=== PATIENT | male | born 1935 | race Caucasian/White ===

== ENCOUNTER 2017-11-18 05:51 | Observation (INO) | payer OTHER ==
[2017-11-16 14:55] VITALS: BP 90/60
[2017-11-16 14:58] LABS: BASOPHILS % (AUTO) 0.7 % (0.0-5.0); EOSINOPHILS % (AUTO) 1.3 % (0.0-8.0); HEMATOCRIT 38.6 % (42-54); LYMPHOCYTES % (AUTO) 27.2 % (21.0-51.0); MEAN CORPUSCULAR HEMOGLOBIN 33.4 pg (27.0-33.0); MEAN CORPUSCULAR HGB CONC 34.2 g/dL (32.0-36.0); MEAN CORPUSCULAR VOLUME 97.5 fL (79-99); MONOCYTES % (AUTO) 5.4 % (3.0-13.0); NEUTROPHILS % (AUTO) 65.4 % (40.0-77.0); PLATELET COUNT (AUTO) 169 K/uL (130-400); RED BLOOD CELL COUNT(AUTO) 3.96 MIL/uL (4.50-6.20); RED CELL DISTRIBUTION WIDTH 12.4 % (11.0-15.5)
[2017-11-16 15:14] LABS: CREATININE 1.5 mg/dL (0.5-1.5); POTASSIUM 4.7 mmol/L (3.5-5.1)
[2017-11-16 15:18] LABS: INR 1.01 (0.85-1.15); PARTIAL THROMBOPLASTIN TIME 28.5 SEC (26.3-35.5); PROTHROMBIN TIME 10.6 SEC (9.6-11.6)
[2017-11-18] VITALS (9 sets, daily range): BP systolic 109–138; BP diastolic 62–78
[~2017-11-18] VITALS: Ht 185.4 cm; Wt 96.2 kg
[~2017-11-18 05:51] MED LIST: FISH1CAP20 PO; GLIM2TAB3 PO; LOSA25TA21 PO; METO25TA6 PO; RIVA20TA PO
[2017-11-18] MEDS ORDERED: SODIUM CHLORIDE 0.9% 1000ML 1,000 ML IV SCH (06:00)
[2017-11-18] MEDS ORDERED: CEFAZOLIN SODIUM 1 GM VIAL IVP SCH (06:00)
[2017-11-18] MEDS ORDERED: LIDOCAINE HCL 1% MDV 50ML VIAL ONE (09:22)
[2017-11-18] MEDS ORDERED: BUPIVACAINE/PF 0.25% 30ML VIAL IJ ONE (09:22)
[2017-11-18] MEDS ORDERED: CEFAZOLIN SODIUM 1 GM VIAL ONE (09:22)
[2017-11-18] MEDS ORDERED: MEPERIDINE-PF 25 MG/ML SYG ONE ×7 (09:23→13:05)
[2017-11-18] MEDS ORDERED: MIDAZOLAM HCL 1 MG/ML 2ML VIAL ONE ×7 (09:23→13:05)
[2017-11-18] MEDS ORDERED: THROMBIN-JMI 5000 UNIT/VIAL TP ONE (09:59)
[2017-11-18] MEDS ORDERED: ISOVUE-300 100 ML VIAL IV ONE (11:24)
[2017-11-18] MEDS ORDERED: VANCOMYCIN 1GM+NS 250ML 250 ML IV ONE (13:21)
[2017-11-18] MEDS ORDERED: OCTYL 2-CYANOACRYLATE 1 EACH TP ONE (13:32)
[2017-11-18] MEDS ORDERED: ACETAMINOPHEN 325 MG TAB PO PRN ×2 (13:45)
[2017-11-18] MEDS ORDERED: ONDANSETRON HCL 4 MG/2 ML VIAL IV PRN (13:45)
[2017-11-18] MEDS ORDERED: DEXTROSE 50%-WATER 50 ML DISP.SYRIN IV PRN (13:45)
[2017-11-18] MEDS ORDERED: DOXY100T2 PO (13:48)
[2017-11-18] MEDS: INSULIN HUMULIN R 100 UNIT/ML 3ML SQ SCH (20:41)
[2017-11-18] MEDS ORDERED: FISH OIL 1000 MG/CAP PO SCH (21:00)
[2017-11-18] MEDS ORDERED: METOPROLOL TARTRATE 25 MG TAB PO SCH (21:00)
[2017-11-19] MEDS ORDERED: CEFAZOLIN SODIUM 1 GM VIAL IVP ONE
[2017-11-19 04:08] VITALS: BP 135/74
[2017-11-19] MEDS: INSULIN HUMULIN R 100 UNIT/ML 3ML SQ SCH ×2 (05:41→11:30)
[2017-11-19 07:00] VITALS: BP 127/71
[2017-11-19] MEDS ORDERED: GLIMEPIRIDE 2 MG TABLET PO SCH (09:00)
[2017-11-19] MEDS ORDERED: LOSARTAN 50 MG TABLET PO SCH (09:00)
[2017-11-19 11:00] VITALS: BP 125/59
== END 2017-11-19 13:00 | disposition home or self-care (01) ==
LOC: DAH 05:51 → 2AH 05:52 → DAH 05:52
PROVIDERS: ADMIT Family Medicine; ATTEND Internal Medicine Cardiovascular Disease
DX: I25.5 Ischemic cardiomyopathy (principal); I44.2 Atrioventricular block, complete; I50.42 Chronic combined systolic (congestive) and diastolic (congestive) heart failure; I48.2 Chronic atrial fibrillation; G47.33 Obstructive sleep apnea (adult) (pediatric); K21.9 Gastro-esophageal reflux disease without esophagitis; E11.9 Type 2 diabetes mellitus without complications; Z95.5 Presence of coronary angioplasty implant and graft; Z95.810 Presence of automatic (implantable) cardiac defibrillator; Z79.01 Long term (current) use of anticoagulants; Z79.899 Other long term (current) drug therapy
CPT/HCPCS: 33225; 33264; 36415; 71046; 80048; 82948 ×5; 85025; 85610; 85730; 93005 ×2; 96374; A4218; A4606; C1769 ×5; C1882; C1887; C1894 ×2; C1900; G0378 ×31; J0690 ×2; J2175 ×7; J2250 ×7; J3370; J3490 ×3; J7030; Q9967; 99152; 99153

== ENCOUNTER → 2017-11-23 | Outpatient (CLI) | payer OTHER ==
[~2017-11-23] MED LIST changes: +DOXY100T2 PO
== END ==
LOC: RAH 11:17
PROVIDERS: ATTEND Family Medicine
DX: I50.22 Chronic systolic (congestive) heart failure (principal); Z95.0 Presence of cardiac pacemaker
CPT/HCPCS: 71046

== ENCOUNTER 2017-12-21 19:38 | Emergency (ER) | payer OTHER ==
[2017-12-21] MEDS ORDERED: SODIUM CHLORIDE 0.9% 1000ML 1,000 ML IV ONE (20:14)
[2017-12-21] MEDS ORDERED: ONDANSETRON HCL 4 MG/2 ML VIAL ONE (20:14)
[2017-12-21] MEDS ORDERED: FENTANYL CITRATE PF 50 MCG/1 ML 2ML VIAL ONE (20:15)
[2017-12-21 20:16] LABS: APPEARANCE,URINE Clear (CLEAR); BILIRUBIN,URINE Negative (NEGATIVE); COLOR,URINE Yellow (YELLOW); GLUCOSE, URINE (UA) Negative (NEGATIVE); KETONES,URINE Negative (NEGATIVE); LEUKOCYTE ESTERASE ,URINE Negative (NEGATIVE); NITRATE,URINE Negative (NEGATIVE); OCCULT BLOOD,URINE Negative (NEGATIVE); PH,URINE 5.5 (5.0-8.0); PROTEIN,URINE Negative (NEGATIVE); UROBILINOGEN,URINE 0.2 mg/dL (0.2-1.0)
[2017-12-21 20:46] LABS: BASOPHILS % (AUTO) 0.3 % (0.0-5.0); EOSINOPHILS % (AUTO) 0.5 % (0.0-8.0); HEMATOCRIT 40.2 % (42-54); LYMPHOCYTES % (AUTO) 16.5 % (21.0-51.0); MEAN CORPUSCULAR HEMOGLOBIN 33.1 pg (27.0-33.0); MEAN CORPUSCULAR VOLUME 97.3 fL (79-99); MONOCYTES % (AUTO) 6.4 % (3.0-13.0); NEUTROPHILS % (AUTO) 76.3 % (40.0-77.0); PLATELET COUNT (AUTO) 139 K/uL (130-400); RED BLOOD CELL COUNT(AUTO) 4.13 MIL/uL (4.50-6.20); RED CELL DISTRIBUTION WIDTH 12.7 % (11.0-15.5); WHITE BLOOD COUNT (AUTO) 10.8 K/uL (4.8-10.8)
[2017-12-21 20:55] LABS: CREATININE 1.1 mg/dL (0.5-1.5)
[2017-12-21 20:59] LABS: ALBUMIN 3.6 g/dL (3.5-5.0); BILIRUBIN,DIRECT 0.1 mg/dL (0.0-0.3); BILIRUBIN,TOTAL 0.8 mg/dL (0.2-1.0); TOTAL PROTEIN, SERUM 7.6 g/dL (6.0-8.3)
[2017-12-21] MEDS ORDERED: IOPAMIDOL-370 75 ML VIAL IV ONE (21:03)
== END 2017-12-21 22:08 | disposition home or self-care (01) ==
LOC: EDH 19:38
DX: K52.9 Noninfective gastroenteritis and colitis, unspecified (principal); E11.9 Type 2 diabetes mellitus without complications; I10 Essential (primary) hypertension; I48.91 Unspecified atrial fibrillation; Z95.0 Presence of cardiac pacemaker; Z90.49 Acquired absence of other specified parts of digestive tract; Z88.8 Allergy status to other drugs, medicaments and biological substances
CPT/HCPCS: 36415; 74177; 80048; 80076; 81003; 83690; 84484; 85025; 93005; 96361; 96374; 96375; 99285; J2405; J3010; J7030; Q9967

== ENCOUNTER 2019-05-10 05:59 | Day surgery (SDC) | payer OTHER ==
[2019-05-05 13:01] VITALS: BP 131/70
[2019-05-05 13:42] LABS: BASOPHILS % (AUTO) 0.5 % (0.0-5.0); EOSINOPHILS % (AUTO) 1.7 % (0.0-8.0); HEMATOCRIT 40.3 % (42-54); LYMPHOCYTES % (AUTO) 36.8 % (21.0-51.0); MEAN CORPUSCULAR HEMOGLOBIN 33.3 pg (27.0-33.0); MEAN CORPUSCULAR HGB CONC 33.9 g/dL (32.0-36.0); MEAN CORPUSCULAR VOLUME 98.2 fL (79-99); MONOCYTES % (AUTO) 7.7 % (3.0-13.0); NEUTROPHILS % (AUTO) 53.3 % (40.0-77.0); NUCLEATED RED BLOOD CELLS 0.1 % (0.0-0.19); PLATELET COUNT (AUTO) 128 K/uL (130-400); RED BLOOD CELL COUNT(AUTO) 4.11 MIL/uL (4.50-6.20); RED CELL DISTRIBUTION WIDTH 12.9 % (11.0-15.5); WHITE BLOOD COUNT (AUTO) 8.8 K/uL (4.8-10.8)
[2019-05-05 13:50] LABS: CREATININE 1.1 mg/dL (0.5-1.5); POTASSIUM 4.7 mmol/L (3.5-5.1)
[2019-05-05 13:54] LABS: INR 1.09 (0.85-1.15); PROTHROMBIN TIME 11.4 SEC (9.6-11.6)
[~2019-05-10] VITALS: Ht 182.9 cm; Wt 93.3 kg
[2019-05-10] VITALS (10 sets, daily range): BP systolic 113–131; BP diastolic 66–81
[~2019-05-10 05:59] MED LIST changes: +BETA1TAB18 PO; +BETAMETHASONE TP; -DOXY100T2 PO; -FISH1CAP20 PO; +FISH1CAP63 PO; -LOSA25TA21 PO; +LOSA25TA41 PO; +METO-408 PO; -METO25TA6 PO
[2019-05-10] MEDS ORDERED: SODIUM CHLORIDE 0.9% 1000ML 1,000 ML IV ONE (06:16)
[2019-05-10] MEDS ORDERED: BUPIVACAINE/PF 0.25% 30ML VIAL IJ ONE (07:19)
[2019-05-10] MEDS ORDERED: CEFAZOLIN SODIUM 1 GM VIAL ONE (07:19)
[2019-05-10] MEDS ORDERED: MIDAZOLAM HCL 1 MG/ML 2ML VIAL ONE ×5 (07:19→10:42)
[2019-05-10] MEDS ORDERED: LIDOCAINE HCL 1% MDV 50ML VIAL ONE (07:20)
[2019-05-10] MEDS ORDERED: GLUC-252 PO (07:20)
[2019-05-10] MEDS ORDERED: MEPERIDINE-PF 50 MG/ML SYG ONE ×2 (07:20→08:46)
--- NOTE | 2019-05-10 07:30 | NUR ---
Pt to senior label specialist, care rendered over and report given to ANNETTE Chowdhury.
[2019-05-10] MEDS ORDERED: CEFAZOLIN SODIUM 1 GM VIAL IVP ONE (08:00)
[2019-05-10] MEDS ORDERED: VANCOMYCIN 1GM+NS 250ML 250 ML IV ONE (08:20)
[2019-05-10] MEDS ORDERED: MEPERIDINE-PF 25 MG/ML SYG ONE ×3 (09:33→10:42)
--- NOTE | 2019-05-10 11:00 | NUR ---
ANNETTE Salinas called from prestressed concrete laborer. Stated that pt was doing well, that they are preparing to close, and that it would be about another 45 ins. Pt's spouse updated on pt's status.
[2019-05-10] MEDS ORDERED: DOXY100C2 PO (11:30)
--- NOTE | 2019-05-10 11:40 | NUR ---
Pt back from lab support technician, drowsing but aware and responsive. Pt's dressing to left chest remains dry, clean and intact with pressure dressing in place. Pt resting s any signs of distress.
--- NOTE | 2019-05-10 15:05 | NUR ---
Pt discharged home, tolerating po fluids/solids wells, ambulating well. Denies any severe pain, nausea or dizziness. Dressing to right chest remains dry, clean, and intact, pressure dressing remains on until seen by Dr. Parnell at tomorrow's appointment. Pt's spouse given prescription for antibiotic and instructions given on how to take it. Pt reminded to hold Xarelto until notified by Dr. Parnell to resume it. Pt and spouse instructed in daily dressing change procedures. Addendum: 05/10/19 at 2039 by ALIREZA MONROE RN RN Note should read left chest.
== END 2019-05-10 15:05 | disposition home or self-care (01) ==
LOC: DAH 05:59
PROVIDERS: ATTEND Internal Medicine Cardiovascular Disease
DX: T82.110A Breakdown (mechanical) of cardiac electrode, initial encounter (principal); I48.0 Paroxysmal atrial fibrillation; G47.33 Obstructive sleep apnea (adult) (pediatric); K21.9 Gastro-esophageal reflux disease without esophagitis; I50.9 Heart failure, unspecified; Z79.01 Long term (current) use of anticoagulants; Z79.899 Other long term (current) drug therapy; Z95.5 Presence of coronary angioplasty implant and graft; Z88.8 Allergy status to other drugs, medicaments and biological substances; Y83.8 Other surgical procedures as the cause of abnormal reaction of the patient, or of later complication, without mention of misadventure at the time of the procedure
CPT/HCPCS: 33264; 36415; 80048; 82948 ×2; 85025; 85610; 85730; 87070; 87076; 93005; A4215; A4216; A4221; A4222; A4223 ×3; A4606; C1882; J0690; J2175 ×5; J2250 ×5; J3370; J3490 ×2; J7030; 99156; 99157

== ENCOUNTER → 2019-09-21 | Outpatient (CLI) | payer OTHER ==
[~2019-09-21] MED LIST changes: +DOXY100C2 PO; -GLIM2TAB3 PO; +GLIM2TAB30 PO; +GLUC-252 PO; -LOSA25TA41 PO; -RIVA20TA PO
== END | disposition home or self-care (01) ==
LOC: LAB 14:17
PROVIDERS: ATTEND Internal Medicine Cardiovascular Disease
DX: T82.7XXA Infection and inflammatory reaction due to other cardiac and vascular devices, implants and grafts, initial encounter (principal); Z95.810 Presence of automatic (implantable) cardiac defibrillator; X58.XXXA Exposure to other specified factors, initial encounter; Y93.89 Activity, other specified; Y92.89 Other specified places as the place of occurrence of the external cause
CPT/HCPCS: 36415; 87040; 87070; 87076

== ENCOUNTER → 2019-10-20 | Outpatient (CLI) | payer OTHER | END | disposition home or self-care (01) | LOC: LAB 10:58 | PROVIDERS: ATTEND Internal Medicine Cardiovascular Disease | DX: T82.7XXA Infection and inflammatory reaction due to other cardiac and vascular devices, implants and grafts, initial encounter (principal) | CPT/HCPCS: 36415; 87040 ==

== ENCOUNTER 2019-11-10 06:06 | Observation (INO) | payer OTHER ==
[2019-11-02 12:08] VITALS: BP 115/68
[2019-11-04 08:10] VITALS: BP 132/69
[2019-11-04 08:30] VITALS: BP 132/69
--- NOTE | 2019-11-04 08:30 | NUR ---
pre op pt laying comfortably in bed. call light with in reach and bed in lowest position. pt has irritation to face, head, chest, neck and arms. pt also reported having nasal drip. pt connected to optical glass sawyer Addendum: 11/04/19 at 1011 by CAPO BARRERA RN RN Amended: Links added.
[2019-11-04 08:40] LABS: BASOPHILS % (AUTO) 1.1 % (0.0-5.0); EOSINOPHILS % (AUTO) 2.6 % (0.0-8.0); HEMATOCRIT 39.5 % (42-54); LYMPHOCYTES % (AUTO) 29.1 % (21.0-51.0); MEAN CORPUSCULAR HEMOGLOBIN 30.7 pg (27.0-33.0); MEAN CORPUSCULAR HGB CONC 30.9 g/dL (32.0-36.0); MEAN CORPUSCULAR VOLUME 99.2 fL (79-99); MONOCYTES % (AUTO) 8.8 % (3.0-13.0); NEUTROPHILS % (AUTO) 58.1 % (40.0-77.0); PLATELET COUNT (AUTO) 180 K/uL (130-400); RED BLOOD CELL COUNT(AUTO) 3.98 MIL/uL (4.50-6.20); RED CELL DISTRIBUTION WIDTH 13.2 % (11.0-15.5); WHITE BLOOD COUNT (AUTO) 6.5 K/uL (4.8-10.8)
[2019-11-04 08:47] LABS: CREATININE 1.3 mg/dL (0.5-1.5); POTASSIUM 4.9 mmol/L (3.5-5.1)
[2019-11-04 08:51] LABS: INR 1.05 (0.85-1.15); PARTIAL THROMBOPLASTIN TIME 27.1 SEC (26.3-35.5); PROTHROMBIN TIME 11.3 SEC (9.6-11.6)
[2019-11-04 12:30] VITALS: BP 147/81
--- NOTE | 2019-11-04 15:06 | NUR ---
report report given to paul cintron from day patient
[2019-11-10] VITALS (11 sets, daily range): BP systolic 94–161; BP diastolic 45–77
[~2019-11-10] VITALS: Ht 182.9 cm; Wt 89.7 kg
[~2019-11-10 06:06] MED LIST changes: -BETA1TAB18 PO; -BETAMETHASONE TP; +CEFAZOLIN SODIUM 1 GM VIAL IVP SCH; -DOXY100C2 PO; -FISH1CAP63 PO; -GLUC-252 PO; -METO-408 PO; +METO25TA6 PO; +RIVA20TA PO; +SODIUM CHLORIDE 0.9% 1000ML 1,000 ML IV SCH
[2019-11-10] MEDS ORDERED: SODIUM CHLORIDE 0.9% 1000ML 1,000 ML IV ONE (07:11)
[2019-11-10] MEDS ORDERED: BUPIVACAINE/PF 0.25% 30ML VIAL IJ ONE (07:23)
[2019-11-10] MEDS ORDERED: CEFAZOLIN SODIUM 1 GM VIAL ONE (07:23)
[2019-11-10] MEDS ORDERED: IODIXANOL 320 MG/ML 100 ML VIAL ONE (07:23)
[2019-11-10] MEDS ORDERED: MIDAZOLAM HCL 1 MG/ML 2ML VIAL ONE ×2 (07:24→08:09)
[2019-11-10] MEDS ORDERED: LIDOCAINE HCL 1% MDV 50ML VIAL ONE (07:24)
[2019-11-10] MEDS ORDERED: MEPERIDINE-PF 25 MG/ML SYG ONE ×2 (07:24→08:09)
[2019-11-10] MEDS ORDERED: VANCOMYCIN 1GM+NS 250ML 500 ML IV ONE (08:13)
[2019-11-10] MEDS ORDERED: ONDANSETRON HCL 4 MG/2 ML VIAL IV PRN ×2 (10:45→15:15)
--- NOTE | 2019-11-10 11:05 | NUR ---
PT DRESSING INTACT, NO BLEEDING/HEMATOMA
[2019-11-10] MEDS ORDERED: ACETAMINOPHEN 325 MG TAB PO SCH (13:30)
[2019-11-10] MEDS ORDERED: ACETAMINOPHEN 325 MG TAB ONE (13:34)
--- NOTE | 2019-11-10 14:30 | NUR ---
REPORT GIVEN TO ANNETTE LOO
--- NOTE | 2019-11-10 14:30 | NUR ---
TRANSFER PT RECEIVED FROM [facility], S/P Bi[facility] PPM PLACEMENT BY DR SUN. RT UPPER CHEST DSG DRY & INTACT. NO BLEEDING, NO HEMATOMA NOTED. DENIES INCISIONAL PAIN @ THIS TIME. ARM PPM PRECAUTIONS REVIEWED & REINFORCED. SLING TO RT ARM. BEDREST COMPLETED @ DAY PT. A/O X 3. NO SOB. NO DISTRESS NOTED. DENIES CHEST PAIN OR DISCOMFORT. TELE: AV PACED. DENIES N/V AND/OR DIARRHEA. UP W/ASSISTANCE. ORIENTED TO RM. SPOUSE @ BEDSIDE. INSTRUCTED TO CALL FOR ASSISTANCE. CALL ELENA W/IN REACH.
[2019-11-10] MEDS ORDERED: HYDRALAZINE HCL 20 MG/ML VIAL IV PRN (15:15)
[2019-11-10] MEDS ORDERED: ACETAMINOPHEN 325 MG TAB PO PRN (15:15)
[2019-11-10] MEDS ORDERED: MORPHINE SULFATE 2 MG/ML 1ML SYG IV PRN (15:15)
--- NOTE | 2019-11-10 16:54 | NUR ---
INITIAL Patient lives with spouse, Mervat Rutherford, [phone]. No home services. DME: [facility], glucometer (no insulin). Patient is able to complete ADL's independently and drives. PCP is Dr. Mai Andrews. Pharmacy is [facility] in [place]. DCP is home. Addendum: 11/10/19 at 1656 by EUGENIA SHEA SS Amended: Links added.
[2019-11-10] MEDS ORDERED: DEXTROSE 50%-WATER 50 ML DISP.SYRIN IV PRN (18:00)
[2019-11-10] MEDS ORDERED: GLUCAGON 1MG KIT 1 MG ML IM PRN (18:00)
[2019-11-10] MEDS: ACETAMINOPHEN 325 MG TAB PO PRN (18:51)
[2019-11-10] MEDS: METOPROLOL TARTRATE 25 MG TAB PO SCH (20:36)
[2019-11-10] MEDS: INSULIN HUMULIN R 100 UNIT/ML 3ML SQ SCH (20:37)
[2019-11-11 00:03] VITALS: BP 148/76
[2019-11-11 04:00] VITALS: BP 144/76
[2019-11-11 04:14] LABS: BASOPHILS % (AUTO) 0.8 % (0.0-5.0); HEMATOCRIT 37.6 % (42-54); LYMPHOCYTES % (AUTO) 25.5 % (21.0-51.0); MEAN CORPUSCULAR HEMOGLOBIN 31.2 pg (27.0-33.0); MEAN CORPUSCULAR HGB CONC 32.2 g/dL (32.0-36.0); MEAN CORPUSCULAR VOLUME 96.9 fL (79-99); MONOCYTES % (AUTO) 9.9 % (3.0-13.0); NEUTROPHILS % (AUTO) 59.6 % (40.0-77.0); PLATELET COUNT (AUTO) 146 K/uL (130-400); RED BLOOD CELL COUNT(AUTO) 3.88 MIL/uL (4.50-6.20); RED CELL DISTRIBUTION WIDTH 13.1 % (11.0-15.5); WHITE BLOOD COUNT (AUTO) 6.4 K/uL (4.8-10.8)
[2019-11-11 04:40] LABS: ALBUMIN 3.3 g/dL (3.5-5.0); BILIRUBIN,TOTAL 0.8 mg/dL (0.2-1.0); CREATININE 1.1 mg/dL (0.5-1.5); POTASSIUM 4.3 mmol/L (3.5-5.1); TOTAL PROTEIN, SERUM 7.3 g/dL (6.0-8.3)
[2019-11-11] MEDS: INSULIN HUMULIN R 100 UNIT/ML 3ML SQ SCH (06:23)
[2019-11-11] MEDS: ACETAMINOPHEN 325 MG TAB PO PRN (06:29)
[2019-11-11 08:00] VITALS: BP 147/78
[2019-11-11] MEDS: METOPROLOL TARTRATE 25 MG TAB PO SCH (08:27)
--- NOTE | 2019-11-11 08:30 | NUR ---
AM ASSESSMENT PT SITTING IN CHAIR, WATCHING TV. A/O X 3. NO SOB. NO DISTRESS NOTED. DENIES CHEST PAIN OR DISCOMFORT. DENIES INCISIONAL PAIN @ THIS TIME. TELE: AV PACED. DENIES N/V AND/OR DIARRHEA. ARM PPM PRECAUTION REINFORCED @ THIS TIME. RT UPPER CHEST DSG DRY & INTACT. NO BLEEDING, NO HEMATOMA NOTED. UP W/ASSISTANCE. INSTRUCTED TO CALL FOR ASSISTANCE. CALL ELENA W/IN REACH.
[2019-11-11] MEDS ORDERED: GLIMEPIRIDE 2 MG TABLET PO SCH (09:00)
[2019-11-11] MEDS ORDERED: FAMOTIDINE/PF 20 MG/2 ML VIAL IV SCH (09:00)
--- NOTE | 2019-11-11 10:45 | NUR ---
DISCHARGE VERBAL & WRITTEN DISCHARGE INSTRUCTIONS REVIEWED & GIVEN TO PT & SPOUSE. QUESTIONS ENCOURAGED & CLARIFIED. PROPER CARE & ACTIVITY AFTER BiV PPM PLACEMENT REVIEWED. ARM PRECAUTIONS REINFORCED. DSG CHANGE REVIEWED. DSG CHANGE ALSO DONE @ THIS TIME. TOLERATED WELL. PT TO CONTINUED HOME MEDICATIONS. XARELTO TO BE RESUMED. TELE ODESSA REMOVED. IV DC'D. PT & SPOUSE TO GATHER PERSONAL BELONGINGS. WILL NOTIFY STAFF WHEN READY TO BE TAKEN TO PRIVATE VEHICLE.
--- NOTE | 2019-11-11 11:02 | NUR ---
[id number] patient signed YATES Letter. I faxed YATES Letter to [phone] and placed in chart under consent tab.
--- NOTE | 2019-11-11 11:05 | NUR ---
DISCHARGE PT TAKEN TO PRIVATE VEHICLE VIA WC BY MYSELF, Christian KAY. NO DISTRESS NOTED. SPOUSE AWAITING FOR PT IN PRIVATE VEHICLE.
== END 2019-11-11 11:05 | disposition home or self-care (01) ==
LOC: DAH 06:06 → DAHIP 06:07 → 2AH 14:47
PROVIDERS: ADMIT Internal Medicine; ATTEND Internal Medicine
DX: I44.2 Atrioventricular block, complete (principal); I50.22 Chronic systolic (congestive) heart failure; I48.21 Permanent atrial fibrillation; Z82.49 Family history of ischemic heart disease and other diseases of the circulatory system; Z79.01 Long term (current) use of anticoagulants; I26.99 Other pulmonary embolism without acute cor pulmonale; E78.5 Hyperlipidemia, unspecified; I25.10 Atherosclerotic heart disease of native coronary artery without angina pectoris; Z83.3 Family history of diabetes mellitus; Z88.8 Allergy status to other drugs, medicaments and biological substances; I11.0 Hypertensive heart disease with heart failure
CPT/HCPCS: 33208; 33225; 36415 ×2; 71045; 80048; 80053; 82948 ×4; 85025 ×2; 85610; 85730; 96374; A4215 ×3; A4216 ×2; A4221 ×2; A4222 ×2; A4223 ×6; A4606 ×2; A4663 ×2; C1769; C1895 ×2; C1900; C2621; G0378 ×19; J0690; J2175 ×2; J2250 ×2; J3370; J3490 ×3; J7030 ×2; Q9967; 99156; 99157

== ENCOUNTER 2021-01-24 23:05 | Observation (INO) | payer OTHER ==
[~2021-01-24] VITALS: Ht 180.3 cm; Wt 96.8 kg
[~2021-01-24 23:05] MED LIST changes: -CEFAZOLIN SODIUM 1 GM VIAL IVP SCH; -SODIUM CHLORIDE 0.9% 1000ML 1,000 ML IV SCH
[2021-01-24 23:11] VITALS: BP 182/89
[2021-01-24 23:30] VITALS: BP 175/84
[2021-01-24] MEDS ORDERED: TETANUS/DIPHTHERIA TOXOID [ADULT] 0.5 ML VIAL IM SCH (23:30)
[2021-01-24 23:45] VITALS: BP 144/73
[2021-01-24] MEDS ORDERED: LIDOCAINE HCL 1% 20 ML VIAL ONE (23:56)
[2021-01-24] MEDS ORDERED: TETANUS/DIPHTHERIA TOXOID [ADULT] 0.5 ML VIAL IM ONE (23:57)
[2021-01-25] VITALS (35 sets, daily range): BP systolic 90–154; BP diastolic 40–82
[2021-01-25] MEDS: LIDOCAINE HCL 1% 20 ML VIAL INJ SCH ×2 (00:01)
[2021-01-25 00:55] LABS: BASOPHILS % (AUTO) 0.7 % (0.0-5.0); EOSINOPHILS % (AUTO) 2.1 % (0.0-8.0); HEMATOCRIT 35.4 % (42-54); LYMPHOCYTES % (AUTO) 31.2 % (21.0-51.0); MEAN CORPUSCULAR HEMOGLOBIN 32.4 pg (27.0-33.0); MEAN CORPUSCULAR HGB CONC 32.2 g/dL (32.0-36.0); MEAN CORPUSCULAR VOLUME 100.6 fL (79-99); MONOCYTES % (AUTO) 8.2 % (3.0-13.0); NEUTROPHILS % (AUTO) 57.6 % (40.0-77.0); PLATELET COUNT (AUTO) 159 K/uL (130-400); RED BLOOD CELL COUNT(AUTO) 3.52 MIL/uL (4.50-6.20); RED CELL DISTRIBUTION WIDTH 13.3 % (11.0-15.5); WHITE BLOOD COUNT (AUTO) 8.3 K/uL (4.8-10.8)
[2021-01-25] MEDS ORDERED: TRANEXAMIC ACID 1000MG/10ML ONE ×2 (00:58→01:17)
[2021-01-25 01:06] LABS: CARBON DIOXIDE 27 mmol/L (21-32); CHLORIDE 104 mmol/L (101-111); CREATININE 1.5 mg/dL (0.5-1.5); GLOMERULAR FILTR. RATE CALC 47 mL/min (>60); GLUCOSE,RANDOM 136 mg/dL (70-105); POTASSIUM 4.1 mmol/L (3.5-5.1); SODIUM SERUM 139 mmol/L (136-145); UREA NITROGEN, BLOOD 23 mg/dL (7-18)
[2021-01-25 01:10] LABS: ALANINE AMINOTRANSFERASE 16 U/L (12-78); ALBUMIN 3.8 g/dL (3.5-5.0); ALCOHOL, BLOOD < 3 mg/dL (0-10); ASPARTATE AMINOTRANSFERASE 15 U/L (10-37); BILIRUBIN,TOTAL 0.4 mg/dL (0.2-1.0); TOTAL PROTEIN, SERUM 7.5 g/dL (6.0-8.3)
[2021-01-25 01:14] LABS: INR 1.23 (0.85-1.15); PROTHROMBIN TIME 13.2 SEC (9.6-11.6)
[2021-01-25 01:15] LABS: PARTIAL THROMBOPLASTIN TIME 32.8 SEC (26.3-35.5)
[2021-01-25] MEDS ORDERED: CEFEPIME HCL 2 GM VIAL ONE (01:34)
[2021-01-25] MEDS ORDERED: ACETAMINOPHEN 325 MG TAB PO PRN (02:30)
[2021-01-25] MEDS ORDERED: NITROGLYCERIN 0.4 MG SL TAB SL PRN (02:30)
[2021-01-25] MEDS ORDERED: ONDANSETRON 4MG INJ IV PRN (02:30)
[2021-01-25] MEDS ORDERED: DEXTROSE 50%-WATER 50 ML DISP.SYRIN IV PRN (03:15)
[2021-01-25] MEDS ORDERED: GLUCAGON 1MG KIT 1 MG ML IM PRN (03:15)
[2021-01-25] MEDS ORDERED: VANCOMYCIN KIT 250 ML IV SCH (03:15)
[2021-01-25] MEDS ORDERED: VANCOMYCIN KIT 250 ML IV ONE (03:30)
[2021-01-25] MEDS ORDERED: VANCOMYCIN PROTOCOL PER PHARMACY IV SCH (03:30)
[2021-01-25] MEDS: ACETAMINOPHEN 325 MG TAB PO PRN ×2 (04:29→17:12)
[2021-01-25] MEDS ORDERED: INSULIN HUMULIN R 100 UNIT/ML 3ML SQ SCH (06:00)
[2021-01-25 07:53] LABS: HEMATOCRIT 31.8 % (42-54); MEAN CORPUSCULAR HEMOGLOBIN 32.9 pg (27.0-33.0); MEAN CORPUSCULAR HGB CONC 32.1 g/dL (32.0-36.0); MEAN CORPUSCULAR VOLUME 102.6 fL (79-99); RED BLOOD CELL COUNT(AUTO) 3.1 MIL/uL (4.50-6.20); RED CELL DISTRIBUTION WIDTH 13.3 % (11.0-15.5)
[2021-01-25 08:12] LABS: ALBUMIN 3.5 g/dL (3.5-5.0); BILIRUBIN,TOTAL 0.6 mg/dL (0.2-1.0); CREATININE 1.2 mg/dL (0.5-1.5); POTASSIUM 4.5 mmol/L (3.5-5.1); TOTAL PROTEIN, SERUM 6.9 g/dL (6.0-8.3)
[2021-01-25] MEDS: FAMOTIDINE 20MG VIAL IV SCH (09:00)
[2021-01-25] MEDS ORDERED: ASPIRIN 81MG CHEW TAB PO SCH (09:00)
[2021-01-25] MEDS ORDERED: ASPIRIN 325 MG TABLET PO SCH (09:00)
[2021-01-25] MEDS: METOPROLOL TARTRATE 25 MG TAB PO SCH ×2 (09:00→20:45)
[2021-01-25] MEDS ORDERED: LIDOCAINE PF 100MG/5ML (2%) SYRINGE 5ML ONE (09:03)
[2021-01-25] MEDS ORDERED: SUCCINYLCHOLINE CHLORIDE 20 MG/ML 10 ML VIAL ONE (09:03)
[2021-01-25] MEDS ORDERED: PROPOFOL 10 MG/ML 20ML VIAL IV ONE (09:04)
[2021-01-25] MEDS ORDERED: ONDANSETRON 4MG INJ ONE (09:45)
[2021-01-25] MEDS ORDERED: COMPOUND IV REFRIGERATED 1 EACH IVSOLN MISC PRN (12:00)
[2021-01-25] MEDS: VANCOMYCIN 750MG + NS 250 ML IV SCH ×2 (13:42)
[2021-01-25] MEDS: INSULIN HUMULIN R 100 UNIT/ML 3ML SQ SCH ×2 (16:30→20:56)
[2021-01-25] MEDS ORDERED: DOXYCYCLINE HYCLATE 100 MG TABLET PO ONE (19:28)
[2021-01-25] MEDS: DOXYCYCLINE HYCLATE 100 MG TABLET PO SCH (20:45)
[2021-01-26] MEDS: VANCOMYCIN 750MG + NS 250 ML IV SCH ×4 (00:11→12:09)
[2021-01-26 00:56] VITALS: BP 120/54
[2021-01-26 04:00] VITALS: BP 114/63
[2021-01-26 04:57] LABS: APPEARANCE,URINE Clear (CLEAR); BILIRUBIN,URINE Negative (NEGATIVE); COLOR,URINE Yellow (YELLOW); GLUCOSE, URINE (UA) Negative (NEGATIVE); KETONES,URINE Negative (NEGATIVE); LEUKOCYTE ESTERASE ,URINE Negative (NEGATIVE); NITRATE,URINE Negative (NEGATIVE); OCCULT BLOOD,URINE Negative (NEGATIVE); PROTEIN,URINE Negative (NEGATIVE)
[2021-01-26 05:04] LABS: AMPHET/METH SCREEN,URINE NEGATIVE (NEGATIVE); BARBITURATE SCREEN, URINE NEGATIVE (NEGATIVE); BENZODIAZEPINES SCREEN,URINE NEGATIVE (NEGATIVE); CANNABINOID SCREEN,URINE NEGATIVE (NEGATIVE); COCAINE SCREEN,URINE NEGATIVE (NEGATIVE); OPIATE SCREEN,URINE NEGATIVE (NEGATIVE); PHENCYCLIDINE SCREEN,URINE NEGATIVE (NEGATIVE)
[2021-01-26] MEDS: INSULIN HUMULIN R 100 UNIT/ML 3ML SQ SCH ×2 (05:52→11:11)
[2021-01-26 08:00] VITALS: BP 150/68
[2021-01-26] MEDS: METOPROLOL TARTRATE 25 MG TAB PO SCH (08:38)
[2021-01-26] MEDS: DOXYCYCLINE HYCLATE 100 MG TABLET PO SCH (08:38)
[2021-01-26] MEDS: FAMOTIDINE 20MG VIAL IV SCH (08:39)
[2021-01-26 11:58] VITALS: BP 121/56
[2021-01-26] MEDS ORDERED: DOXY100C2 PO (14:59)
[2021-01-26 15:00] VITALS: BP_SYST 113; BP_SYST 123; BP_SYST 124; BP_DIAS 50; BP_DIAS 55; BP_DIAS 57
== END 2021-01-26 15:49 | disposition home or self-care (01) ==
LOC: EDH 23:05 → EDHIP 01-25 01:48 → 4BH 01-25 07:58
PROVIDERS: ADMIT Internal Medicine Pulmonary Disease; ATTEND Internal Medicine Pulmonary Disease
DX: S01.21XA Laceration without foreign body of nose, initial encounter (principal); I10 Essential (primary) hypertension; I25.5 Ischemic cardiomyopathy; I44.2 Atrioventricular block, complete; I25.10 Atherosclerotic heart disease of native coronary artery without angina pectoris; E78.5 Hyperlipidemia, unspecified; I48.20 Chronic atrial fibrillation, unspecified; E11.9 Type 2 diabetes mellitus without complications; E66.9 Obesity, unspecified; Z23 Encounter for immunization; Z86.711 Personal history of pulmonary embolism; Z95.0 Presence of cardiac pacemaker; Z79.01 Long term (current) use of anticoagulants; Z79.84 Long term (current) use of oral hypoglycemic drugs; Z79.899 Other long term (current) drug therapy; W06.XXXA Fall from bed, initial encounter; Y93.89 Activity, other specified; Y92.89 Other specified places as the place of occurrence of the external cause; Z68.29 Body mass index [BMI] 29.0-29.9, adult
CPT/HCPCS: 13152; 13153; 36415; 70450; 70486; 71045; 72125; 80053 ×2; 80305; 81003; 82948 ×5; 85025; 85027; 85610; 85730; 86850; 86900; 86901; 90471; 90714; 93005; 93306; 93880; 96365; 96366 ×2; 96375; 97161; 99285; A4222; A4223; A4510; A4649; A5120; G0168; G0378 ×36; G8978; G8979; G8980; G8981; G8982; G8983; J0330; J0692; J2001; J2405; J2704; J3370 ×3; J3490 ×3; J7030; J7050 ×2; 93356

== ENCOUNTER → 2021-01-31 | Outpatient (CLI) | payer OTHER ==
[~2021-01-31] MED LIST changes: +DOXY100C2 PO; +REGADENOSON 0.4 MG/5 ML PF SYG IVP SCH
== END | disposition home or self-care (01) ==
LOC: SHCH 07:46
PROVIDERS: ATTEND Internal Medicine Cardiovascular Disease
DX: I10 Essential (primary) hypertension (principal); R06.00 Dyspnea, unspecified; Z79.899 Other long term (current) drug therapy
CPT/HCPCS: 78452; 93017; 96374; A9500 ×2; J2785

== ENCOUNTER 2021-02-26 09:15 | Day surgery (SDC) | payer OTHER ==
[~2021-02-26 09:15] MED LIST changes: -REGADENOSON 0.4 MG/5 ML PF SYG IVP SCH
[2021-02-26] MEDS ORDERED: IOHEXOL 350 MG/ML 100ML INFUS..BTL IV ONE (11:50)
[2021-02-26] MEDS ORDERED: 0.9%NACL 1000ML 1,000 ML IV ONE (11:59)
== END 2021-02-26 13:30 | disposition home or self-care (01) ==
LOC: RAH 09:15 → EDSTATUS 10:00 → RAH 13:30
PROVIDERS: ATTEND Internal Medicine Cardiovascular Disease
DX: I87.1 Compression of vein (principal); I82.B19 Acute embolism and thrombosis of unspecified subclavian vein; I82.C19 Acute embolism and thrombosis of unspecified internal jugular vein; Z95.0 Presence of cardiac pacemaker
CPT/HCPCS: 71275; A4215; A4216; A4221; A4222; A4223 ×3; A4606; A4663; J7030; Q9967

== ENCOUNTER 2021-04-04 08:52 | Day surgery (SDC) | payer OTHER ==
[2021-04-03 09:34] LABS: BASOPHILS % (AUTO) 0.7 % (0.0-5.0); EOSINOPHILS % (AUTO) 2.1 % (0.0-8.0); HEMATOCRIT 41.2 % (42-54); MEAN CORPUSCULAR HEMOGLOBIN 32.7 pg (27.0-33.0); MEAN CORPUSCULAR HGB CONC 31.1 g/dL (32.0-36.0); MEAN CORPUSCULAR VOLUME 105.1 fL (79-99); MONOCYTES % (AUTO) 9.6 % (3.0-13.0); NEUTROPHILS % (AUTO) 50.4 % (40.0-77.0); PLATELET COUNT (AUTO) 162 K/uL (130-400); RED BLOOD CELL COUNT(AUTO) 3.92 MIL/uL (4.50-6.20); RED CELL DISTRIBUTION WIDTH 12.2 % (11.0-15.5); WHITE BLOOD COUNT (AUTO) 8.5 K/uL (4.8-10.8)
[2021-04-03 09:50] LABS: INR 1.09 (0.85-1.15); PROTHROMBIN TIME 11.8 SEC (9.6-11.6)
[2021-04-03 09:51] LABS: CREATININE 1.2 mg/dL (0.5-1.5); PARTIAL THROMBOPLASTIN TIME 30.8 SEC (26.3-35.5); POTASSIUM 5.2 mmol/L (3.5-5.1)
[2021-04-03 09:54] LABS: APPEARANCE,URINE Clear (CLEAR); BILIRUBIN,URINE Negative (NEGATIVE); COLOR,URINE Yellow (YELLOW); GLUCOSE, URINE (UA) Negative (NEGATIVE); KETONES,URINE Negative (NEGATIVE); LEUKOCYTE ESTERASE ,URINE Negative (NEGATIVE); NITRATE,URINE Negative (NEGATIVE); OCCULT BLOOD,URINE Negative (NEGATIVE); PH,URINE 6.5 (5.0-8.0); PROTEIN,URINE Negative (NEGATIVE); UROBILINOGEN,URINE 0.2 mg/dL (0.2-1.0)
[2021-04-03 15:04] VITALS: BP 147/83
[~2021-04-04] VITALS: Ht 180.3 cm; Wt 94.3 kg
[2021-04-04] VITALS (9 sets, daily range): BP systolic 124–151; BP diastolic 65–75
[~2021-04-04 08:52] MED LIST changes: +0.9%NACL 1000ML 1,000 ML IV ONE; -DOXY100C2 PO; -METO25TA6 PO; +PIND10TA2 PO
[2021-04-04] MEDS ORDERED: 0.9%NACL 1000ML 1,000 ML IV ONE (10:15)
[2021-04-04] MEDS ORDERED: NITROGLYCERIN 2 MG VIAL IV ONE (11:58)
[2021-04-04] MEDS ORDERED: IOHEXOL 350 MG/ML 100ML INFUS..BTL IV ONE (11:58)
[2021-04-04] MEDS ORDERED: HEPARIN 10,000 UNIT/10ML (1,000 UNIT/ML) VIAL ONE (11:58)
[2021-04-04] MEDS ORDERED: MIDAZOLAM HCL 1 MG/ML 2ML VIAL ONE ×2 (11:58→12:36)
[2021-04-04] MEDS ORDERED: MEPERIDINE-PF 25 MG/ML SYG ONE ×2 (11:58→12:36)
[2021-04-04] MEDS ORDERED: LIDOCAINE HCL 400MG/20ML VIAL ONE (12:21)
[2021-04-04] MEDS ORDERED: SODIUM BICARB 50MEQ 50ML VIAL 50 ML ONE (12:21)
[2021-04-04] MEDS ORDERED: 0.9%NACL 1000ML 1,000 ML IV SCH (14:30)
[2021-04-04] MEDS ORDERED: DEXTROSE 50%-WATER 50 ML DISP.SYRIN IV PRN (14:30)
[2021-04-04] MEDS ORDERED: GLUCAGON 1MG KIT 1 MG ML IM PRN (14:30)
[2021-04-04] MEDS ORDERED: INSULIN HUMULIN R 100 UNIT/ML 3ML SQ SCH (16:30)
[2021-04-04] MEDS ORDERED: ACETAMINOPHEN 325 MG TAB ONE (18:07)
== END 2021-04-04 18:45 | disposition home or self-care (01) ==
LOC: DAH 08:52
PROVIDERS: ATTEND Internal Medicine Cardiovascular Disease
DX: I87.1 Compression of vein (principal); I82.B13 Acute embolism and thrombosis of subclavian vein, bilateral; I11.0 Hypertensive heart disease with heart failure; I50.42 Chronic combined systolic (congestive) and diastolic (congestive) heart failure; I48.21 Permanent atrial fibrillation; I25.10 Atherosclerotic heart disease of native coronary artery without angina pectoris; E78.5 Hyperlipidemia, unspecified; Z79.01 Long term (current) use of anticoagulants; Z79.84 Long term (current) use of oral hypoglycemic drugs; Z95.5 Presence of coronary angioplasty implant and graft; Z83.3 Family history of diabetes mellitus; Z79.899 Other long term (current) drug therapy; Z98.890 Other specified postprocedural states
CPT/HCPCS: 36005; 36415; 37248; 71045; 75822; 80048; 81003; 82948; 85025; 85610; 85730; 93005; 99156; 99157; A4606; C1725; C1760; C1769; C1894; J1644; J2175; J2250; J3490; J7030; Q9967

== ENCOUNTER 2021-12-21 12:45 | Observation (INO) | payer OTHER ==
[~2021-12-21] VITALS: Ht 180.3 cm; Wt 90.7 kg
[~2021-12-21 12:45] MED LIST changes: -0.9%NACL 1000ML 1,000 ML IV ONE
[2021-12-21 12:59] LABS: BASOPHILS % (AUTO) 0.4 % (0.0-5.0); EOSINOPHILS % (AUTO) 0.8 % (0.0-8.0); HEMATOCRIT 41.3 % (42-54); LYMPHOCYTES % (AUTO) 37.6 % (21.0-51.0); MEAN CORPUSCULAR HEMOGLOBIN 32.3 pg (27.0-33.0); MEAN CORPUSCULAR HGB CONC 31.7 g/dL (32.0-36.0); MONOCYTES % (AUTO) 7.3 % (3.0-13.0); NEUTROPHILS % (AUTO) 53.5 % (40.0-77.0); PLATELET COUNT (AUTO) 143 K/uL (130-400); RED BLOOD CELL COUNT(AUTO) 4.05 MIL/uL (4.50-6.20); RED CELL DISTRIBUTION WIDTH 13.2 % (11.0-15.5); WHITE BLOOD COUNT (AUTO) 11.7 K/uL (4.8-10.8)
[2021-12-21 13:10] LABS: CREATININE 1.8 mg/dL (0.5-1.5); POTASSIUM 5.4 mmol/L (3.5-5.1)
[2021-12-21 13:11] LABS: INR 1.47 (0.85-1.15); PROTHROMBIN TIME 15.5 SEC (9.6-11.6)
[2021-12-21 13:12] LABS: PARTIAL THROMBOPLASTIN TIME 36.3 SEC (26.3-35.5)
[2021-12-21 13:15] LABS: BILIRUBIN,TOTAL 0.9 mg/dL (0.2-1.0); TOTAL PROTEIN, SERUM 7.7 g/dL (6.0-8.3)
[2021-12-21] MEDS ORDERED: ACETAMINOPHEN 325 MG TAB PO PRN (14:30)
[2021-12-21] MEDS ORDERED: LACTULOSE 20 GM/30 ML UDCUP PO PRN (14:30)
[2021-12-21] MEDS ORDERED: HYDRALAZINE 20MG/ML VIAL IV PRN (14:30)
[2021-12-21] MEDS ORDERED: LABETALOL 20MG SYG IV PRN (14:30)
[2021-12-21] MEDS ORDERED: TETANUS/DIPHTHERIA TOXOID [ADULT] 0.5 ML VIAL IM ONE (15:00)
[2021-12-21] MEDS: 0.9%NACL 1000ML 1,000 ML IV SCH (15:13)
[2021-12-21 15:20] VITALS: BP 164/90
[2021-12-21 15:57] LABS: APPEARANCE,URINE Clear (CLEAR); BILIRUBIN,URINE Negative (NEGATIVE); COLOR,URINE Yellow (YELLOW); GLUCOSE, URINE (UA) Negative (NEGATIVE); KETONES,URINE Negative (NEGATIVE); LEUKOCYTE ESTERASE ,URINE Negative (NEGATIVE); NITRATE,URINE Negative (NEGATIVE); OCCULT BLOOD,URINE Negative (NEGATIVE); PROTEIN,URINE Negative (NEGATIVE); UROBILINOGEN,URINE 0.2 mg/dL (0.2-1.0)
[2021-12-21] MEDS ORDERED: BETA1TAB18 PO (17:24)
[2021-12-21] MEDS ORDERED: GLIP-162 PO (17:24)
[2021-12-21] MEDS ORDERED: PIND10TA2 PO (17:24)
[2021-12-21 19:45] VITALS: BP 93/55
[2021-12-21] MEDS: ARTIFICAL TEARS SOL 15 ML OU SCH (20:30)
[2021-12-21] MEDS: INSULIN HUMULIN R 100 UNIT/ML 3ML SQ SCH (21:00)
[2021-12-21 23:55] VITALS: BP 114/65
[2021-12-22] VITALS (9 sets, daily range): BP systolic 104–153; BP diastolic 58–84
[2021-12-22] MEDS: ARTIFICAL TEARS SOL 15 ML OU SCH ×4 (02:30→20:30)
[2021-12-22 05:18] LABS: BASOPHILS % (AUTO) 0.4 % (0.0-5.0); EOSINOPHILS % (AUTO) 1.4 % (0.0-8.0); HEMATOCRIT 37.6 % (42-54); LYMPHOCYTES % (AUTO) 36.5 % (21.0-51.0); MEAN CORPUSCULAR HEMOGLOBIN 33.2 pg (27.0-33.0); MEAN CORPUSCULAR HGB CONC 32.7 g/dL (32.0-36.0); MEAN CORPUSCULAR VOLUME 101.3 fL (79-99); MONOCYTES % (AUTO) 8.7 % (3.0-13.0); NEUTROPHILS % (AUTO) 52.5 % (40.0-77.0); PLATELET COUNT (AUTO) 149 K/uL (130-400); RED BLOOD CELL COUNT(AUTO) 3.71 MIL/uL (4.50-6.20); RED CELL DISTRIBUTION WIDTH 13.3 % (11.0-15.5); WHITE BLOOD COUNT (AUTO) 9.3 K/uL (4.8-10.8)
[2021-12-22 05:33] LABS: HEMOGLOBIN A1C 7.1 % (4.0-6.0)
[2021-12-22 05:40] LABS: CREATININE 1.1 mg/dL (0.5-1.5); MAGNESIUM 2.3 mg/dL (1.80-2.40); PHOSPHORUS 3.6 mg/dL (2.5-4.9); POTASSIUM 4.5 mmol/L (3.5-5.1); THYROID STIMULATING HORMONE 1.55 uIU/mL (0.36-3.74)
[2021-12-22] MEDS: 0.9%NACL 1000ML 1,000 ML IV SCH ×4 (05:44→22:00)
[2021-12-22] MEDS: INSULIN HUMULIN R 100 UNIT/ML 3ML SQ SCH ×4 (05:45→21:00)
[2021-12-23] MEDS: ARTIFICAL TEARS SOL 15 ML OU SCH ×2 (02:30→08:30)
[2021-12-23 04:20] VITALS: BP 137/68
[2021-12-23 04:25] VITALS: BP 100/44
[2021-12-23 04:30] VITALS: BP 144/78
[2021-12-23 05:31] LABS: MEAN CORPUSCULAR HEMOGLOBIN 33.4 pg (27.0-33.0); MEAN CORPUSCULAR HGB CONC 33.1 g/dL (32.0-36.0); MEAN CORPUSCULAR VOLUME 101.1 fL (79-99); RED BLOOD CELL COUNT(AUTO) 3.56 MIL/uL (4.50-6.20); RED CELL DISTRIBUTION WIDTH 13.2 % (11.0-15.5); WHITE BLOOD COUNT (AUTO) 8.7 K/uL (4.8-10.8)
[2021-12-23 05:38] LABS: CREATININE 1.1 mg/dL (0.5-1.5); MAGNESIUM 2.2 mg/dL (1.80-2.40)
[2021-12-23] MEDS: INSULIN HUMULIN R 100 UNIT/ML 3ML SQ SCH ×2 (06:33→11:30)
[2021-12-23 08:00] VITALS: BP 155/84
[2021-12-23 12:00] VITALS: BP_SYST 120; BP_SYST 127; BP_SYST 138; BP_DIAS 59; BP_DIAS 76; BP_DIAS 77
[2021-12-23] MEDS ORDERED: PINDOLOL 5 MG TAB PO SCH (21:00)
[2021-12-24] MEDS ORDERED: RIVAROXABAN 20 MG TABLET PO SCH (09:00)
[2021-12-24] MEDS ORDERED: **HM** OCUVITE PO SCH (09:00)
== END 2021-12-23 14:30 | disposition left against medical advice (07) ==
LOC: EDH 12:45 → EDHIP 14:03 → 3AH 16:14
PROVIDERS: ADMIT Internal Medicine Critical Care Medicine; ATTEND Internal Medicine Critical Care Medicine
DX: S09.90XA Unspecified injury of head, initial encounter (principal); S00.01XA Abrasion of scalp, initial encounter; N17.9 Acute kidney failure, unspecified; I95.1 Orthostatic hypotension; I25.10 Atherosclerotic heart disease of native coronary artery without angina pectoris; I44.2 Atrioventricular block, complete; I10 Essential (primary) hypertension; E78.5 Hyperlipidemia, unspecified; I48.20 Chronic atrial fibrillation, unspecified; E11.9 Type 2 diabetes mellitus without complications; I72.9 Aneurysm of unspecified site; J43.2 Centrilobular emphysema; K57.30 Diverticulosis of large intestine without perforation or abscess without bleeding; R56.9 Unspecified convulsions; Z79.01 Long term (current) use of anticoagulants; Z86.711 Personal history of pulmonary embolism; Z95.0 Presence of cardiac pacemaker; Z53.29 Procedure and treatment not carried out because of patient's decision for other reasons; Z79.84 Long term (current) use of oral hypoglycemic drugs; Z23 Encounter for immunization; W11.XXXA Fall on and from ladder, initial encounter; Y92.89 Other specified places as the place of occurrence of the external cause; Y93.89 Activity, other specified
CPT/HCPCS: 36415 ×3; 70450 ×2; 71045; 71250; 72125; 74176; 80048 ×2; 80053; 81003; 82550; 82948 ×7; 83036; 83735 ×2; 84100; 84443; 84484; 85025 ×2; 85027; 85610; 85730; 90471; 90714; 93005; 93306; 96360; 96361 ×3; 99285; G0378 ×47; J1815; J7030 ×2

== ENCOUNTER → 2022-05-28 | Outpatient (CLI) | payer OTHER ==
[~2022-05-28] MED LIST changes: +BETA1TAB18 PO; -GLIM2TAB30 PO; +GLIP-162 PO
== END | disposition home or self-care (01) ==
LOC: SHCH 10:30
PROVIDERS: ATTEND Internal Medicine Cardiovascular Disease
DX: I65.23 Occlusion and stenosis of bilateral carotid arteries (principal)
CPT/HCPCS: 93880

== ENCOUNTER 2022-07-21 09:06 | Inpatient (IN) | payer OTHER ==
[~2022-07-21] VITALS: Ht 180.3 cm; Wt 96.2 kg
[2022-07-21 10:29] LABS: BASOPHILS % (AUTO) 0.9 % (0.0-5.0); EOSINOPHILS % (AUTO) 1.7 % (0.0-8.0); HEMATOCRIT 32.9 % (42-54); LYMPHOCYTES % (AUTO) 35.4 % (21.0-51.0); MEAN CORPUSCULAR HEMOGLOBIN 33.1 pg (27.0-33.0); MEAN CORPUSCULAR HGB CONC 32.5 g/dL (32.0-36.0); MEAN CORPUSCULAR VOLUME 101.9 fL (79-99); MONOCYTES % (AUTO) 12.2 % (3.0-13.0); NEUTROPHILS % (AUTO) 49.6 % (40.0-77.0); PLATELET COUNT (AUTO) 153 K/uL (130-400); RED BLOOD CELL COUNT(AUTO) 3.23 MIL/uL (4.50-6.20); WHITE BLOOD COUNT (AUTO) 5.8 K/uL (4.8-10.8)
[2022-07-21 10:55] LABS: ALBUMIN 3.6 g/dL (3.5-5.0); CREATININE 1.2 mg/dL (0.5-1.5); POTASSIUM 4.2 mmol/L (3.5-5.1); TOTAL PROTEIN, SERUM 7.2 g/dL (6.0-8.3)
[2022-07-21 12:01] LABS: APPEARANCE,URINE CLEAR (CLEAR); BILIRUBIN,URINE NEGATIVE (NEGATIVE); COLOR,URINE YELLOW (YELLOW); GLUCOSE, URINE (UA) NEGATIVE (NEGATIVE); KETONES,URINE NEGATIVE (NEGATIVE); LEUKOCYTE ESTERASE ,URINE NEGATIVE Leu/uL (NEGATIVE); NITRATE,URINE NEGATIVE (NEGATIVE); OCCULT BLOOD,URINE NEGATIVE (NEGATIVE); PROTEIN,URINE NEGATIVE (NEGATIVE); UROBILINOGEN,URINE 0.2 mg/dL (0.2-1.0)
[2022-07-21 12:06] LABS: AMPHET/METH SCREEN,URINE NEGATIVE (NEGATIVE); BARBITURATE SCREEN, URINE NEGATIVE (NEGATIVE); BENZODIAZEPINES SCREEN,URINE NEGATIVE (NEGATIVE); CANNABINOID SCREEN,URINE NEGATIVE (NEGATIVE); COCAINE SCREEN,URINE NEGATIVE (NEGATIVE); OPIATE SCREEN,URINE NEGATIVE (NEGATIVE); PHENCYCLIDINE SCREEN,URINE NEGATIVE (NEGATIVE)
[2022-07-21] MEDS ORDERED: IPRATROPIUM/ALBUTEROL SULFATE 3 ML SOLUTION IH ONE ×2 (12:14→12:30)
[2022-07-21 13:04] LABS: ACETAMINOPHEN < 1 mcg/mL (10-29); ALCOHOL, BLOOD < 3 mg/dL (0-10); SALICYLATE < 2.8 mg/dL (2.8-20.0)
[2022-07-21 14:20] LABS: MAGNESIUM 1.9 mg/dL (1.80-2.40)
[2022-07-21] MEDS ORDERED: ONDANSETRON 4MG INJ IVP PRN (14:30)
[2022-07-21] MEDS ORDERED: LACTULOSE 20 GM/30 ML UDCUP PO PRN (14:30)
[2022-07-21] MEDS ORDERED: HYDRALAZINE 20MG/ML VIAL IV PRN (14:30)
[2022-07-21 15:04] LABS: THYROID STIMULATING HORMONE 1.53 uIU/mL (0.36-3.74)
[2022-07-21] MEDS: INSULIN HUMULIN R 100 UNIT/ML 3ML SQ SCH ×2 (16:30→21:00)
[2022-07-21] MEDS: IPRATROPIUM 0.5 MG/2.5 ML INH IH SCH ×2 (18:36→23:54)
[2022-07-21] MEDS ORDERED: GLUC-148 PO (18:37)
[2022-07-21] MEDS ORDERED: MIDO10TA PO (18:42)
[2022-07-21] MEDS: DOXYCYCLINE 100MG+NS 250ML IV SCH (19:49)
[2022-07-21] MEDS: FAMOTIDINE 20MG VIAL IV SCH (21:39)
[2022-07-22 05:41] LABS: BASOPHILS % (AUTO) 0.7 % (0.0-5.0); EOSINOPHILS % (AUTO) 1.4 % (0.0-8.0); HEMATOCRIT 33.5 % (42-54); LYMPHOCYTES % (AUTO) 26.2 % (21.0-51.0); MEAN CORPUSCULAR HEMOGLOBIN 33.3 pg (27.0-33.0); MEAN CORPUSCULAR HGB CONC 32.2 g/dL (32.0-36.0); MEAN CORPUSCULAR VOLUME 103.4 fL (79-99); MONOCYTES % (AUTO) 12.2 % (3.0-13.0); NEUTROPHILS % (AUTO) 59.2 % (40.0-77.0); PLATELET COUNT (AUTO) 147 K/uL (130-400); RED BLOOD CELL COUNT(AUTO) 3.24 MIL/uL (4.50-6.20); RED CELL DISTRIBUTION WIDTH 12.8 % (11.0-15.5); WHITE BLOOD COUNT (AUTO) 7.1 K/uL (4.8-10.8)
[2022-07-22 05:58] LABS: CREATININE 1.2 mg/dL (0.5-1.5); PHOSPHORUS 3.5 mg/dL (2.5-4.9); POTASSIUM 4.1 mmol/L (3.5-5.1)
[2022-07-22] MEDS: IPRATROPIUM 0.5 MG/2.5 ML INH IH SCH ×3 (06:00→18:00)
[2022-07-22] MEDS: INSULIN HUMULIN R 100 UNIT/ML 3ML SQ SCH ×4 (07:52→20:16)
[2022-07-22] MEDS: DOXYCYCLINE 100MG+NS 250ML IV SCH ×2 (07:53→19:31)
[2022-07-22] MEDS ORDERED: CLONIDINE HCL 0.1 MG TABLET PO PRN (08:00)
[2022-07-22] MEDS ORDERED: HALOPERIDOL INJ 5 MG/ML VIAL IM SCH (08:30)
[2022-07-22] MEDS: FAMOTIDINE 20MG VIAL IV SCH ×2 (08:41→19:31)
[2022-07-22 16:00] VITALS: BP 163/74
[2022-07-22] MEDS: OLANZAPINE 5 MG TAB PO SCH (17:34)
[2022-07-22] MEDS ORDERED: IOHEXOL 350 MG/ML 100ML INFUS..BTL IV ONE (19:54)
[2022-07-22 20:00] VITALS: BP 157/73
[2022-07-23] VITALS (15 sets, daily range): BP systolic 124–178; BP diastolic 33–104
[2022-07-23] MEDS: INSULIN HUMULIN R 100 UNIT/ML 3ML SQ SCH ×4 (05:45→20:50)
[2022-07-23 06:19] LABS: BASOPHILS % (AUTO) 1.2 % (0.0-5.0); EOSINOPHILS % (AUTO) 2.8 % (0.0-8.0); HEMATOCRIT 33.5 % (42-54); LYMPHOCYTES % (AUTO) 30.8 % (21.0-51.0); MEAN CORPUSCULAR HEMOGLOBIN 33.1 pg (27.0-33.0); MEAN CORPUSCULAR HGB CONC 31.3 g/dL (32.0-36.0); MEAN CORPUSCULAR VOLUME 105.7 fL (79-99); MONOCYTES % (AUTO) 13.7 % (3.0-13.0); NEUTROPHILS % (AUTO) 51.1 % (40.0-77.0); PLATELET COUNT (AUTO) 156 K/uL (130-400); RED BLOOD CELL COUNT(AUTO) 3.17 MIL/uL (4.50-6.20); RED CELL DISTRIBUTION WIDTH 12.9 % (11.0-15.5); WHITE BLOOD COUNT (AUTO) 7.4 K/uL (4.8-10.8)
[2022-07-23 06:52] LABS: ALBUMIN 3.3 g/dL (3.5-5.0); POTASSIUM 3.5 mmol/L (3.5-5.1); TOTAL PROTEIN, SERUM 6.7 g/dL (6.0-8.3)
[2022-07-23] MEDS: IPRATROPIUM 0.5 MG/2.5 ML INH IH SCH ×5 (06:53→23:50)
[2022-07-23] MEDS: FAMOTIDINE 20MG VIAL IV SCH ×2 (09:00→20:50)
[2022-07-23] MEDS: DOXYCYCLINE 100MG+NS 250ML IV SCH ×2 (09:00→20:49)
[2022-07-23] MEDS: OLANZAPINE 5 MG TAB PO SCH (09:00)
[2022-07-23] MEDS: ACETAMINOPHEN 325 MG TAB PO PRN (11:16)
[2022-07-23] MEDS: 0.9%NACL 1000ML 1,000 ML IV SCH (14:49)
[2022-07-23] MEDS ORDERED: ENOXAPARIN SODIUM 100 MG/1 ML SQ SCH (21:00)
[2022-07-24] VITALS (9 sets, daily range): BP systolic 136–186; BP diastolic 62–92
[2022-07-24] MEDS: ACETAMINOPHEN 325 MG TAB PO PRN (00:20)
[2022-07-24 05:45] LABS: EOSINOPHILS % (AUTO) 3.1 % (0.0-8.0); HEMATOCRIT 33.8 % (42-54); LYMPHOCYTES % (AUTO) 38.4 % (21.0-51.0); MEAN CORPUSCULAR HEMOGLOBIN 32.8 pg (27.0-33.0); MEAN CORPUSCULAR HGB CONC 31.1 g/dL (32.0-36.0); MEAN CORPUSCULAR VOLUME 105.6 fL (79-99); MONOCYTES % (AUTO) 13.3 % (3.0-13.0); NEUTROPHILS % (AUTO) 43.2 % (40.0-77.0); PLATELET COUNT (AUTO) 157 K/uL (130-400); WHITE BLOOD COUNT (AUTO) 6.1 K/uL (4.8-10.8)
[2022-07-24 06:04] LABS: ALBUMIN 3.2 g/dL (3.5-5.0); CREATININE 1.2 mg/dL (0.5-1.5); POTASSIUM 3.7 mmol/L (3.5-5.1); TOTAL PROTEIN, SERUM 6.5 g/dL (6.0-8.3)
[2022-07-24] MEDS: IPRATROPIUM 0.5 MG/2.5 ML INH IH SCH ×3 (06:38→18:56)
[2022-07-24] MEDS: INSULIN HUMULIN R 100 UNIT/ML 3ML SQ SCH ×4 (07:20→21:00)
[2022-07-24] MEDS ORDERED: IOHEXOL 350 MG/ML 100ML INFUS..BTL IV ONE (08:22)
[2022-07-24] MEDS: OLANZAPINE 5 MG TAB PO SCH (08:24)
[2022-07-24] MEDS ORDERED: 0.9% NACL 250ML 250 ML ONE (10:58)
[2022-07-24] MEDS: DOXYCYCLINE 100MG+NS 250ML IV SCH (11:15)
[2022-07-24] MEDS: FAMOTIDINE 20MG VIAL IV SCH ×2 (11:15→21:07)
[2022-07-24] MEDS: 0.9%NACL 1000ML 1,000 ML IV SCH (11:16)
[2022-07-24] MEDS ORDERED: LORAZEPAM 2 MG/ML 1 ML VIAL IM SCH (15:00)
[2022-07-24 15:13] LABS: ROCKY MT SPOTTED FEVER IGG <1:64 (Neg:<1:64); ROCKY MT SPOTTED FEVER IGM <1:64 (Neg:<1:64); TYPHUS FEVER AB IGG <1:64 (Neg:<1:64); TYPHUS FEVER AB IGM <1:64 (Neg:<1:64)
[2022-07-24] MEDS ORDERED: CEFTAZIDIME PENTAHYDRATE 2 GM/VIAL IVP SCH (20:00)
[2022-07-24] MEDS ORDERED: HYDROCORTISONE 2.5% CREAM 28G TP SCH (20:00)
[2022-07-24 20:24] LABS: INR 0.98 (0.85-1.15); PROTHROMBIN TIME 10.7 SEC (9.6-11.6)
[2022-07-24 20:25] LABS: PARTIAL THROMBOPLASTIN TIME 27.1 SEC (26.3-35.5)
== END 2022-07-24 23:28 | disposition short-term general hospital (02) | DRG 69 ==
LOC: EDH 09:06 → EDHIP 14:06 → OBSVTOIN 14:06 → 3DH 07-22 16:03
PROVIDERS: ADMIT Internal Medicine Critical Care Medicine; ATTEND Internal Medicine Critical Care Medicine
PROC: 4A00X4Z Measurement of Central Nervous Electrical Activity, External Approach (ICD-10-PCS; principal; 2022-07-24)
DX: G45.9 Transient cerebral ischemic attack, unspecified (principal); G93.40 Encephalopathy, unspecified; I50.32 Chronic diastolic (congestive) heart failure; F03.94 Unspecified dementia, unspecified severity, with anxiety; I48.21 Permanent atrial fibrillation; Z20.822 Contact with and (suspected) exposure to COVID-19; I25.10 Atherosclerotic heart disease of native coronary artery without angina pectoris; I11.0 Hypertensive heart disease with heart failure; G47.33 Obstructive sleep apnea (adult) (pediatric); E11.9 Type 2 diabetes mellitus without complications; E66.9 Obesity, unspecified; W18.39XA Other fall on same level, initial encounter; E78.5 Hyperlipidemia, unspecified; I25.5 Ischemic cardiomyopathy; Z95.810 Presence of automatic (implantable) cardiac defibrillator; Z79.01 Long term (current) use of anticoagulants; Z95.5 Presence of coronary angioplasty implant and graft; Z86.711 Personal history of pulmonary embolism; Z85.820 Personal history of malignant melanoma of skin; Y93.89 Activity, other specified; Y92.89 Other specified places as the place of occurrence of the external cause; Y99.8 Other external cause status; Z68.29 Body mass index [BMI] 29.0-29.9, adult
CPT/HCPCS: 36415; 70450; 70496; 70498; 71045; 71270; 72125; 80048; 80053; 80305; 81003; 82140; 82533; 82550; 82948; 83605; 83735; 83880; 84100; 84145; 84443; 84484; 85025; 85378; 85610; 85730; 86757; 87040; 87071; 87077; 87186; 87205; 87635; 87804; 93005; 93306; 93356; 93880; 93931; 93970; 93971; 94640; 94660; 94664; 95819; 97039; G0378; G0481; J0713; J1630; J1650; J1815; J2060; J3490; J7050; Q9967

== ENCOUNTER → 2023-02-27 | Outpatient (CLI) | payer OTHER ==
[~2023-02-27] MED LIST changes: +GLUC-148 PO; +MIDO10TA PO
== END | disposition home or self-care (01) ==
LOC: RAH 14:40
PROVIDERS: ATTEND Internal Medicine Cardiovascular Disease
DX: I08.0 Rheumatic disorders of both mitral and aortic valves (principal); E85.9 Amyloidosis, unspecified; R53.83 Other fatigue; R07.89 Other chest pain; Z95.0 Presence of cardiac pacemaker
CPT/HCPCS: 78803; 93306; 93356; A9538

== ENCOUNTER 2023-09-01 15:13 | Emergency (ER) | payer OTHER ==
[~2023-09-01] VITALS: Ht 180.3 cm; Wt 102.5 kg
[2023-09-01 16:01] VITALS: BP 129/65; PULSE 77; RESP 18
[2023-09-01 16:50] LABS: BASOPHILS # (AUTO) 0.04 K/uL (0.00-0.20); BASOPHILS % (AUTO) 0.4 % (0.0-5.0); EOSINOPHILS # (AUTO) 0.13 K/uL (0.00-0.70); EOSINOPHILS % (AUTO) 1.4 % (0.0-8.0); HEMATOCRIT 36.2 % (42-54); IMMATURE GRANULOCYTE ABSOLUTE 0.04 K/uL (0-1); LYMPHOCYTES # (AUTO) 2.5 K/uL (1.0-4.8); LYMPHOCYTES % (AUTO) 27.5 % (21.0-51.0); MEAN CORPUSCULAR HEMOGLOBIN 32.8 pg (27.0-33.0); MEAN CORPUSCULAR HGB CONC 32.3 g/dL (32.0-36.0); MEAN CORPUSCULAR VOLUME 101.4 fL (79-99); MONOCYTES # (AUTO) 0.9 K/uL (0.1-1.0); MONOCYTES % (AUTO) 9.6 % (3.0-13.0); NEUTROPHILS # (AUTO) 5.5 K/uL (1.8-7.7); NEUTROPHILS % (AUTO) 60.7 % (40.0-77.0); PLATELET COUNT (AUTO) 175 K/uL (130-400); RED BLOOD CELL COUNT(AUTO) 3.57 MIL/uL (4.50-6.20); RED CELL DISTRIBUTION WIDTH 13.1 % (11.0-15.5)
[2023-09-01 17:46] LABS: CREATININE 1.2 mg/dL (0.5-1.5); POTASSIUM 4.3 mmol/L (3.5-5.1)
[2023-09-01 17:50] LABS: ALBUMIN 3.6 g/dL (3.5-5.0); BILIRUBIN,TOTAL 0.5 mg/dL (0.2-1.0)
== END 2023-09-01 18:36 | disposition left against medical advice (07) ==
LOC: EDH 15:13
DX: K92.1 Melena (principal); Z53.21 Procedure and treatment not carried out due to patient leaving prior to being seen by health care provider
CPT/HCPCS: 36415; 80053; 85025; 86850; 86900; 86901; 99281

== ENCOUNTER → 2023-12-17 | Outpatient (CLI) | payer OTHER ==
[~2023-12-17] MED LIST changes: +AEC81 PO; +APIX5TAB PO; -BETA1TAB18 PO; -GLIP-162 PO; -GLUC-148 PO; -RIVA20TA PO
== END | disposition home or self-care (01) ==
LOC: SHCH 12:28
PROVIDERS: ATTEND Internal Medicine Cardiovascular Disease
DX: I08.0 Rheumatic disorders of both mitral and aortic valves (principal); I42.0 Dilated cardiomyopathy; I48.91 Unspecified atrial fibrillation; E78.5 Hyperlipidemia, unspecified; I27.20 Pulmonary hypertension, unspecified
CPT/HCPCS: 93306